=== PATIENT | female | born 1945 | race Caucasian/White ===

== ENCOUNTER → 2018-05-05 | Outpatient (CLI) | payer OTHER ==
[~2018-05-05] MED LIST: ACETAMINOPHEN325 M1 PO; ADULT LOW DOSE81 MG PO; COLACE100 MG PO; DESYREL50 MG PO; FUROSEMIDE 40 M40 M1 PO; LASIX 20 MG TAB20 MG PO; LISINOPRIL40 MG PO; LISINOPRIL5 MG PO; NORCO 5-325 TA1 EACH PO; PRILOSEC 20 MG20 MG PO; TOPROL XL100 MG PO; TOPROL XL200 MG PO; TOPROL XL50 MG PO; TRIBENZOR 40-11 EAC1 PO; VERAPAMIL HCL 880 M1 PO; VITAMIN D 5050000 I1 PO
== END ==
LOC: RAD 11:41
DX: Z12.31 Encounter for screening mammogram for malignant neoplasm of breast (principal)